=== PATIENT | male | born 1950 | race Hispanic/Latino ===

== ENCOUNTER 2021-04-28 12:49 | Inpatient (IN) | payer MEDICARE ==
[~2021-04-28] VITALS: Ht 167.6 cm; Wt 76.2 kg
[2021-04-28 13:40] LABS: BASOPHILS % 0.3 % (0.0-1.0); EOSINOPHILS # (AUTO) 0.2 (0.0-0.4); EOSINOPHILS % 3.1 % (0.0-6.0); HEMATOCRIT 38.2 % (38.2-49.6); HEMOGLOBIN 12.2 g/dL (14.0-18.0); LYMPHOCYTES % 17.9 % (18.0-39.1); MEAN CORPUSCULAR HGB CONC 31.9 g/dL (31-35); MEAN CORPUSCULAR VOLUME 90.7 fL (81-99); MONOCYTES # (AUTO) 0.4 (0.2-0.8); MONOCYTES % 6.8 % (4.4-11.3); NEUTROPHILS # (AUTO) 4.1 (2.1-6.9); NEUTROPHILS % 71.4 % (38.7-80.0); PLATELET COUNT 151 x10e3/uL (140-360); RED BLOOD COUNT 4.21 x10e6/uL (4.3-5.7); RED CELL DISTRIBUTION WIDTH 14.2 % (11.7-14.4)
[2021-04-28] MEDS: Vancomycin IV 1 GM in SODIUM CHLORIDE 0.9% 250ML 250 ML IV SCH (14:00)
[2021-04-28 14:05] LABS: ALBUMIN 4.1 g/dL (3.5-5.0); ALBUMIN/GLOBULIN RATIO 1.3 (0.8-2.0); ANION GAP 16.1 mmol/L (8-16); CALCIUM 9.3 mg/dL (8.4-10.2); CREATININE, SERUM 0.97 mg/dL (0.72-1.25); POTASSIUM 4.1 mmol/L (3.5-5.1)
[2021-04-28] MEDS ORDERED: GLIMEPIRIDE2 MG PO (17:14)
[2021-04-28] MEDS ORDERED: BACTRIM DS TAB1 EACH PO (17:14)
[2021-04-28] MEDS ORDERED: LEVOFLOXACIN250 MG PO (17:14)
[2021-04-28] MEDS ORDERED: METFORMIN HCL500 MG PO (17:14)
[2021-04-28] MEDS ORDERED: CRESTOR10 MG PO (17:14)
[2021-04-28] MEDS ORDERED: AMLODIPINE BESY10 MG PO (17:14)
[2021-04-28] MEDS ORDERED: PIOGLITAZONE HC45 MG PO (17:14)
[2021-04-28] MEDS ORDERED: ZESTRIL10 MG PO (17:14)
[2021-04-28] MEDS ORDERED: HYDRALAZINE HCL25 MG PO (17:14)
[2021-04-28] MEDS ORDERED: HYDROCHLOROTHIA50 MG PO (17:14)
[2021-04-28 17:16] VITALS: BP 132/69
[2021-04-28 17:17] VITALS: BP 132/69
[2021-04-28] MEDS ORDERED: INFLUENZA VIRUS VAC SPLIT INJ 0.5 ML SYR IM SCH (17:18)
[2021-04-28 17:26] VITALS: BP 132/69
[2021-04-28] MEDS ORDERED: Morphine 2mg Syringe 2 MG/ML SYR IV PRN (17:30)
[2021-04-28] MEDS ORDERED: ACETAMINOPHEN 325 MG TAB PO PRN (17:30)
[2021-04-28] MEDS ORDERED: FAMOTIDINE 20 MG/2 ML VIAL IV ONE (17:42)
[2021-04-28] MEDS ORDERED: ONDANSETRON HCL INJ 2MG/ML 2ML 2 MG/ML VIAL IV PRN (17:45)
[2021-04-28] MEDS ORDERED: DEXTROSE 50% SYRINGE 50 ML IV PRN (17:45)
[2021-04-28] MEDS ORDERED: Vancomycin IV 1 GM in SODIUM CHLORIDE 0.9% 250ML 250 ML IV SCH (18:00)
[2021-04-28] MEDS: SODIUM CHLORIDE 0.9% 1000ML 1,000 ML IV SCH (18:23)
[2021-04-28] MEDS: AMLODIPINE BESYLATE 10 MG TAB PO SCH (18:23)
[2021-04-28 19:54] VITALS: BP 120/63
[2021-04-28] MEDS: INSULIN LISPRO 100 UNIT/1 ML 3ML VIAL SQ SCH (20:52)
[2021-04-28 21:00] VITALS: BP 120/63
[2021-04-28] MEDS: PIPERACILLIN/TAZOBACTAM 3.375 GM in SODIUM CHLORIDE 0.9% 50ML 50 ML IV SCH (22:16)
[2021-04-29] VITALS (8 sets, daily range): BP systolic 102–146; BP diastolic 56–68
[2021-04-29] MEDS: Vancomycin IV 1 GM in SODIUM CHLORIDE 0.9% 250ML 250 ML IV SCH ×2 (02:08→14:04)
[2021-04-29 05:00] LABS: BASOPHILS % 0.5 % (0.0-1.0); EOSINOPHILS # (AUTO) 0.3 (0.0-0.4); HEMATOCRIT 33.7 % (38.2-49.6); HEMOGLOBIN 11.1 g/dL (14.0-18.0); LYMPHOCYTES % 22.8 % (18.0-39.1); MEAN CORPUSCULAR HEMOGLOBIN 29.3 pg (28-32); MEAN CORPUSCULAR HGB CONC 32.9 g/dL (31-35); MEAN CORPUSCULAR VOLUME 88.9 fL (81-99); MONOCYTES # (AUTO) 0.4 (0.2-0.8); MONOCYTES % 9.3 % (4.4-11.3); NEUTROPHILS # (AUTO) 2.6 (2.1-6.9); NEUTROPHILS % 59.9 % (38.7-80.0); PLATELET COUNT 135 x10e3/uL (140-360); RED BLOOD COUNT 3.79 x10e6/uL (4.3-5.7); RED CELL DISTRIBUTION WIDTH 14.2 % (11.7-14.4)
[2021-04-29 05:38] LABS: ERYTHROCYTE SEDIMENTATION RATE 24 mm/hr (0-13)
[2021-04-29] MEDS: PIPERACILLIN/TAZOBACTAM 3.375 GM in SODIUM CHLORIDE 0.9% 50ML 50 ML IV SCH ×3 (06:10→21:41)
[2021-04-29 06:40] LABS: ALBUMIN 3.4 g/dL (3.5-5.0); ALBUMIN/GLOBULIN RATIO 1.3 (0.8-2.0); CALCIUM 8.3 mg/dL (8.4-10.2); CHOL/HDL RATIO 2.6 (3.9-4.7); CREATININE, SERUM 0.74 mg/dL (0.72-1.25); MAGNESIUM 1.6 MG/DL (1.3-2.1)
[2021-04-29 07:00] LABS: THYROID STIMULATING HORMONE 0.84 uIU/mL (0.350-4.940)
[2021-04-29] MEDS: GLIMEPIRIDE 2 MG TAB PO SCH ×2 (07:30→16:38)
[2021-04-29] MEDS: INSULIN LISPRO 100 UNIT/1 ML 3ML VIAL SQ SCH ×4 (07:30→21:41)
[2021-04-29] MEDS: METFORMIN HCL 500 MG TAB PO SCH ×2 (07:51→16:39)
[2021-04-29] MEDS: SODIUM CHLORIDE 0.9% 1000ML 1,000 ML IV SCH ×2 (08:13→20:25)
[2021-04-29] MEDS: HYDRALAZINE HCL 25 MG TAB PO SCH ×2 (08:15→16:39)
[2021-04-29] MEDS ORDERED: Vancomycin IV 1 GM VIAL ONE (10:59)
[2021-04-29] MEDS ORDERED: BUPIVACAINE HCL 0.5% INJ 30 ML VIAL INJ ONE (12:21)
[2021-04-29] MEDS ORDERED: POVIDONE IODINE 0.05% 0.05 % ML PO ONE (12:35)
[2021-04-29] MEDS ORDERED: LIDOCAINE HCL 2% LOCAL INJ 5 ML SDV VIAL INJ ONE (12:35)
[2021-04-29] MEDS ORDERED: ONDANSETRON HCL INJ 2MG/ML 2ML 2 MG/ML VIAL ONE (12:35)
[2021-04-29] MEDS ORDERED: PROPOFOL IV EMULSION 10 MG/ML 20 ML VIAL ONE (12:35)
[2021-04-29] MEDS ORDERED: DEXAMETHASONE SOD PHOS INJ 4 MG/ML SDV ONE (12:35)
[2021-04-29] MEDS ORDERED: SEVOFLURANE INHAL SOLN 250 ML PEN BTL ONE (12:35)
[2021-04-29] MEDS ORDERED: KETOROLAC TROMETHAMINE 30 MG/ML VIAL ONE (12:35)
[2021-04-29] MEDS ORDERED: MIDAZOLAM HCL 2 MG/2 ML VIAL ONE (13:06)
[2021-04-29] MEDS ORDERED: FENTANYL CITRATE/PF 100MCG/2 ML INJ ONE (13:06)
[2021-04-29] MEDS: AMLODIPINE BESYLATE 10 MG TAB PO SCH (13:19)
[2021-04-29] MEDS: PIOGLITAZONE HCL 45 MG TAB PO SCH (13:20)
[2021-04-29] MEDS: LISINOPRIL 20 MG TAB PO SCH (13:20)
[2021-04-29] MEDS: SIMVASTATIN 20 MG TAB PO SCH (21:41)
[2021-04-30] VITALS (8 sets, daily range): BP systolic 95–111; BP diastolic 51–58
[2021-04-30] MEDS: SODIUM CHLORIDE 0.9% 1000ML 1,000 ML IV SCH ×2 (01:45→20:19)
[2021-04-30] MEDS: Vancomycin IV 1 GM in SODIUM CHLORIDE 0.9% 250ML 250 ML IV SCH ×2 (02:18→14:26)
[2021-04-30 04:59] LABS: BASOPHILS % 0.1 % (0.0-1.0); EOSINOPHILS % 0.1 % (0.0-6.0); HEMATOCRIT 32.8 % (38.2-49.6); HEMOGLOBIN 10.8 g/dL (14.0-18.0); LYMPHOCYTES % 13.2 % (18.0-39.1); MEAN CORPUSCULAR HEMOGLOBIN 29.5 pg (28-32); MEAN CORPUSCULAR HGB CONC 32.9 g/dL (31-35); MEAN CORPUSCULAR VOLUME 89.6 fL (81-99); MONOCYTES # (AUTO) 0.6 (0.2-0.8); MONOCYTES % 8.9 % (4.4-11.3); NEUTROPHILS # (AUTO) 5.5 (2.1-6.9); PLATELET COUNT 131 x10e3/uL (140-360); RED BLOOD COUNT 3.66 x10e6/uL (4.3-5.7); RED CELL DISTRIBUTION WIDTH 14.1 % (11.7-14.4)
[2021-04-30 05:22] LABS: ALBUMIN 3.2 g/dL (3.5-5.0); ALBUMIN/GLOBULIN RATIO 1.3 (0.8-2.0); ANION GAP 11.1 mmol/L (8-16); CREATININE, SERUM 0.83 mg/dL (0.72-1.25); POTASSIUM 4.1 mmol/L (3.5-5.1)
[2021-04-30] MEDS: PIPERACILLIN/TAZOBACTAM 3.375 GM in SODIUM CHLORIDE 0.9% 50ML 50 ML IV SCH ×3 (05:34→21:21)
[2021-04-30] MEDS: INSULIN LISPRO 100 UNIT/1 ML 3ML VIAL SQ SCH ×4 (07:30→21:00)
[2021-04-30] MEDS: GLIMEPIRIDE 2 MG TAB PO SCH ×2 (10:06→16:30)
[2021-04-30] MEDS: METFORMIN HCL 500 MG TAB PO SCH ×2 (10:06→16:31)
[2021-04-30] MEDS: PIOGLITAZONE HCL 45 MG TAB PO SCH (10:06)
[2021-04-30] MEDS: AMLODIPINE BESYLATE 10 MG TAB PO SCH (10:07)
[2021-04-30] MEDS: HYDRALAZINE HCL 25 MG TAB PO SCH ×2 (10:07→16:31)
[2021-04-30] MEDS: LISINOPRIL 20 MG TAB PO SCH (10:08)
[2021-04-30] MEDS ORDERED: ONDANSETRON HCL 4 MG ORAL DISINTEGRATING TAB PO PRN (14:15)
[2021-04-30] MEDS ORDERED: Vancomycin IV 1 GM VIAL ONE (15:18)
[2021-04-30] MEDS: SIMVASTATIN 20 MG TAB PO SCH (21:00)
[2021-05-01 00:47] VITALS: BP 103/54
[2021-05-01] MEDS: Vancomycin IV 1.25 GM in SODIUM CHLORIDE 0.9% 250ML 250 ML IV SCH ×2 (01:38→14:39)
[2021-05-01 05:27] VITALS: BP 118/72
[2021-05-01] MEDS: PIPERACILLIN/TAZOBACTAM 3.375 GM in SODIUM CHLORIDE 0.9% 50ML 50 ML IV SCH ×3 (05:39→21:07)
[2021-05-01 06:39] LABS: BASOPHILS % 0.5 % (0.0-1.0); EOSINOPHILS # (AUTO) 0.2 (0.0-0.4); EOSINOPHILS % 4.1 % (0.0-6.0); HEMATOCRIT 32.6 % (38.2-49.6); HEMOGLOBIN 10.4 g/dL (14.0-18.0); LYMPHOCYTES # (AUTO) 1.7 (1.0-3.2); MEAN CORPUSCULAR HEMOGLOBIN 29.3 pg (28-32); MEAN CORPUSCULAR HGB CONC 31.9 g/dL (31-35); MEAN CORPUSCULAR VOLUME 91.8 fL (81-99); MONOCYTES # (AUTO) 0.5 (0.2-0.8); MONOCYTES % 8.9 % (4.4-11.3); NEUTROPHILS # (AUTO) 3.3 (2.1-6.9); NEUTROPHILS % 55.8 % (38.7-80.0); PLATELET COUNT 127 x10e3/uL (140-360); RED BLOOD COUNT 3.55 x10e6/uL (4.3-5.7); RED CELL DISTRIBUTION WIDTH 14.4 % (11.7-14.4)
[2021-05-01 07:17] LABS: ANION GAP 12.1 mmol/L (8-16); CALCIUM 7.5 mg/dL (8.4-10.2); CREATININE, SERUM 0.72 mg/dL (0.72-1.25); MAGNESIUM 1.5 MG/DL (1.3-2.1); PHOSPHORUS 2.6 MG/DL (2.3-4.7); POTASSIUM 4.1 mmol/L (3.5-5.1)
[2021-05-01] MEDS: INSULIN LISPRO 100 UNIT/1 ML 3ML VIAL SQ SCH ×4 (07:30→21:00)
[2021-05-01] MEDS: GLIMEPIRIDE 2 MG TAB PO SCH ×2 (07:30→16:31)
[2021-05-01] MEDS ORDERED: MAGNESIUM SULFATE 2GM/50ML 50 ML IV ONE ×3 (07:45→14:00)
[2021-05-01 08:00] VITALS: BP 118/72
[2021-05-01] MEDS: METFORMIN HCL 500 MG TAB PO SCH ×2 (08:00→16:32)
[2021-05-01] MEDS: OYST-CAL-D 500MG TABLET PO SCH ×2 (09:00→16:32)
[2021-05-01] MEDS: ASCORBIC ACID 500 MG TAB PO SCH ×2 (09:00→16:32)
[2021-05-01] MEDS: LISINOPRIL 20 MG TAB PO SCH (09:00)
[2021-05-01] MEDS: AMLODIPINE BESYLATE 10 MG TAB PO SCH (09:00)
[2021-05-01] MEDS: ZINC SULFATE 220 MG CAP PO SCH ×2 (09:00→16:32)
[2021-05-01] MEDS: HYDRALAZINE HCL 25 MG TAB PO SCH ×2 (09:00→16:32)
[2021-05-01] MEDS: MAGNESIUM OXIDE 400 MG TAB PO SCH ×2 (09:00→16:32)
[2021-05-01] MEDS: PIOGLITAZONE HCL 45 MG TAB PO SCH (09:00)
[2021-05-01] MEDS: MULTIVITAMINS/MINERALS TAB PO SCH (09:00)
[2021-05-01] MEDS: SODIUM CHLORIDE 0.9% 1000ML 1,000 ML IV SCH (12:29)
[2021-05-01] MEDS ORDERED: MAGNESIUM SULF 1GRAM/DEXTROSE 0 ML IV ONE (13:33)
[2021-05-01 20:21] VITALS: BP 113/64
[2021-05-01 20:29] VITALS: BP 113/64
[2021-05-01] MEDS: SIMVASTATIN 20 MG TAB PO SCH (21:00)
[2021-05-02] VITALS (8 sets, daily range): BP systolic 114–135; BP diastolic 52–74
[2021-05-02] MEDS: Vancomycin IV 1.25 GM in SODIUM CHLORIDE 0.9% 250ML 250 ML IV SCH ×2 (02:00→14:54)
[2021-05-02] MEDS: SODIUM CHLORIDE 0.9% 1000ML 1,000 ML IV SCH ×3 (02:28→20:05)
[2021-05-02] MEDS: PIPERACILLIN/TAZOBACTAM 3.375 GM in SODIUM CHLORIDE 0.9% 50ML 50 ML IV SCH ×3 (05:31→21:06)
[2021-05-02] MEDS: INSULIN LISPRO 100 UNIT/1 ML 3ML VIAL SQ SCH ×4 (07:30→20:38)
[2021-05-02] MEDS: GLIMEPIRIDE 2 MG TAB PO SCH ×2 (07:30→16:31)
[2021-05-02] MEDS: METFORMIN HCL 500 MG TAB PO SCH ×2 (08:00→16:34)
[2021-05-02] MEDS: HYDRALAZINE HCL 25 MG TAB PO SCH ×2 (09:00→16:34)
[2021-05-02] MEDS: ZINC SULFATE 220 MG CAP PO SCH ×2 (09:00→16:34)
[2021-05-02] MEDS: PIOGLITAZONE HCL 45 MG TAB PO SCH (09:00)
[2021-05-02] MEDS: MULTIVITAMINS/MINERALS TAB PO SCH (09:00)
[2021-05-02] MEDS: MAGNESIUM OXIDE 400 MG TAB PO SCH ×2 (09:00→16:34)
[2021-05-02] MEDS: OYST-CAL-D 500MG TABLET PO SCH ×2 (09:00→16:34)
[2021-05-02] MEDS: ASCORBIC ACID 500 MG TAB PO SCH ×2 (09:00→16:34)
[2021-05-02] MEDS: AMLODIPINE BESYLATE 10 MG TAB PO SCH (09:00)
[2021-05-02] MEDS: LISINOPRIL 20 MG TAB PO SCH (09:00)
[2021-05-02] MEDS: SIMVASTATIN 20 MG TAB PO SCH (20:06)
[2021-05-03] VITALS (8 sets, daily range): BP systolic 115–144; BP diastolic 48–67
[2021-05-03] MEDS: Vancomycin IV 1.25 GM in SODIUM CHLORIDE 0.9% 250ML 250 ML IV SCH ×2 (02:00→14:00)
[2021-05-03 05:13] LABS: ANION GAP 11.9 mmol/L (8-16); CALCIUM 7.8 mg/dL (8.4-10.2); CREATININE, SERUM 0.73 mg/dL (0.72-1.25); MAGNESIUM 1.8 MG/DL (1.3-2.1); PHOSPHORUS 3.5 MG/DL (2.3-4.7); POTASSIUM 3.9 mmol/L (3.5-5.1)
[2021-05-03] MEDS: PIPERACILLIN/TAZOBACTAM 3.375 GM in SODIUM CHLORIDE 0.9% 50ML 50 ML IV SCH ×3 (05:18→21:52)
[2021-05-03 05:26] LABS: BASOPHILS % 0.4 % (0.0-1.0); EOSINOPHILS # (AUTO) 0.2 (0.0-0.4); HEMATOCRIT 33.2 % (38.2-49.6); HEMOGLOBIN 10.6 g/dL (14.0-18.0); LYMPHOCYTES # (AUTO) 1.2 (1.0-3.2); LYMPHOCYTES % 25.5 % (18.0-39.1); MEAN CORPUSCULAR HEMOGLOBIN 29.5 pg (28-32); MEAN CORPUSCULAR HGB CONC 31.9 g/dL (31-35); MEAN CORPUSCULAR VOLUME 92.5 fL (81-99); MONOCYTES # (AUTO) 0.4 (0.2-0.8); MONOCYTES % 8.5 % (4.4-11.3); NEUTROPHILS # (AUTO) 2.7 (2.1-6.9); NEUTROPHILS % 59.1 % (38.7-80.0); PLATELET COUNT 127 x10e3/uL (140-360); RED BLOOD COUNT 3.59 x10e6/uL (4.3-5.7); RED CELL DISTRIBUTION WIDTH 14.8 % (11.7-14.4)
[2021-05-03] MEDS: GLIMEPIRIDE 2 MG TAB PO SCH ×2 (07:30→16:30)
[2021-05-03] MEDS: INSULIN LISPRO 100 UNIT/1 ML 3ML VIAL SQ SCH ×4 (07:30→21:59)
[2021-05-03] MEDS: METFORMIN HCL 500 MG TAB PO SCH ×2 (08:00→17:00)
[2021-05-03] MEDS: AMLODIPINE BESYLATE 10 MG TAB PO SCH (09:00)
[2021-05-03] MEDS: HYDRALAZINE HCL 25 MG TAB PO SCH ×2 (09:00→17:00)
[2021-05-03] MEDS: LISINOPRIL 20 MG TAB PO SCH (09:00)
[2021-05-03] MEDS: OYST-CAL-D 500MG TABLET PO SCH ×2 (09:00→17:00)
[2021-05-03] MEDS: MULTIVITAMINS/MINERALS TAB PO SCH (09:00)
[2021-05-03] MEDS: ASCORBIC ACID 500 MG TAB PO SCH ×2 (09:00→17:00)
[2021-05-03] MEDS: PIOGLITAZONE HCL 45 MG TAB PO SCH (09:00)
[2021-05-03] MEDS: MAGNESIUM OXIDE 400 MG TAB PO SCH ×2 (09:00→17:00)
[2021-05-03] MEDS: ZINC SULFATE 220 MG CAP PO SCH ×2 (10:28→17:00)
[2021-05-03] MEDS: SIMVASTATIN 20 MG TAB PO SCH (21:52)
[2021-05-03] MEDS: SODIUM CHLORIDE 0.9% 1000ML 1,000 ML IV SCH (21:52)
[2021-05-04 00:43] VITALS: BP 116/59
[2021-05-04] MEDS: Vancomycin IV 1.25 GM in SODIUM CHLORIDE 0.9% 250ML 250 ML IV SCH (03:04)
[2021-05-04 05:05] VITALS: BP 111/67
[2021-05-04] MEDS: PIPERACILLIN/TAZOBACTAM 3.375 GM in SODIUM CHLORIDE 0.9% 50ML 50 ML IV SCH (05:17)
[2021-05-04 06:13] LABS: BASOPHILS % 0.4 % (0.0-1.0); EOSINOPHILS # (AUTO) 0.2 (0.0-0.4); EOSINOPHILS % 5.1 % (0.0-6.0); HEMATOCRIT 32.3 % (38.2-49.6); HEMOGLOBIN 10.4 g/dL (14.0-18.0); LYMPHOCYTES # (AUTO) 1.2 (1.0-3.2); LYMPHOCYTES % 26.7 % (18.0-39.1); MEAN CORPUSCULAR HEMOGLOBIN 29.6 pg (28-32); MEAN CORPUSCULAR HGB CONC 32.2 g/dL (31-35); MONOCYTES # (AUTO) 0.4 (0.2-0.8); MONOCYTES % 9.3 % (4.4-11.3); NEUTROPHILS # (AUTO) 2.6 (2.1-6.9); NEUTROPHILS % 56.7 % (38.7-80.0); PLATELET COUNT 133 x10e3/uL (140-360); RED BLOOD COUNT 3.51 x10e6/uL (4.3-5.7); RED CELL DISTRIBUTION WIDTH 14.9 % (11.7-14.4)
[2021-05-04 06:17] LABS: ANION GAP 12.7 mmol/L (8-16); CALCIUM 8.2 mg/dL (8.4-10.2); CREATININE, SERUM 0.66 mg/dL (0.72-1.25); POTASSIUM 3.7 mmol/L (3.5-5.1)
[2021-05-04] MEDS: INSULIN LISPRO 100 UNIT/1 ML 3ML VIAL SQ SCH ×2 (07:30→11:30)
[2021-05-04 09:00] VITALS: BP 111/67
[2021-05-04] MEDS: HYDRALAZINE HCL 25 MG TAB PO SCH (09:00)
[2021-05-04 09:29] VITALS: BP 124/55
[2021-05-04] MEDS: MULTIVITAMINS/MINERALS TAB PO SCH (09:57)
[2021-05-04] MEDS: MAGNESIUM OXIDE 400 MG TAB PO SCH (09:57)
[2021-05-04] MEDS: METFORMIN HCL 500 MG TAB PO SCH (09:57)
[2021-05-04] MEDS: GLIMEPIRIDE 2 MG TAB PO SCH (09:57)
[2021-05-04] MEDS: PIOGLITAZONE HCL 45 MG TAB PO SCH (09:57)
[2021-05-04] MEDS: AMLODIPINE BESYLATE 10 MG TAB PO SCH (09:58)
[2021-05-04] MEDS: LISINOPRIL 20 MG TAB PO SCH (09:58)
[2021-05-04] MEDS: ASCORBIC ACID 500 MG TAB PO SCH (09:58)
[2021-05-04] MEDS: ZINC SULFATE 220 MG CAP PO SCH (09:58)
[2021-05-04] MEDS: OYST-CAL-D 500MG TABLET PO SCH (09:58)
[2021-05-04 13:11] VITALS: BP 129/60
[2021-05-04 13:30] VITALS: BP 120/60
[2021-05-05] MEDS ORDERED: CEFTRIAXONE 2 GM in SODIUM CHLORIDE 0.9% 100 ML IV SCH (09:00)
== END 2021-05-04 16:01 | DRG 623 ==
LOC: ER 12:59 → ERHOLD 13:19 → IMCU 16:55 → MED/SURG2 04-29 18:06
PROVIDERS: ADMIT Internal Medicine; ATTEND Internal Medicine
PROC: 0J9Q0ZZ Drainage of Right Foot Subcutaneous Tissue and Fascia, Open Approach (ICD-10-PCS; 2021-04-29)
PROC: 3E0102A Introduction of Anti-Infective Envelope into Subcutaneous Tissue, Open Approach (ICD-10-PCS; 2021-04-29)
PROC: 0LBV0ZZ Excision of Right Foot Tendon, Open Approach (ICD-10-PCS; principal; 2021-04-29 12:00)
DX: E11.69 Type 2 diabetes mellitus with other specified complication (principal); M86.8X7 Other osteomyelitis, ankle and foot; L97.418 Non-pressure chronic ulcer of right heel and midfoot with other specified severity; B96.89 Other specified bacterial agents as the cause of diseases classified elsewhere; C61 Malignant neoplasm of prostate; I10 Essential (primary) hypertension; E11.621 Type 2 diabetes mellitus with foot ulcer; Z79.899 Other long term (current) drug therapy; E11.40 Type 2 diabetes mellitus with diabetic neuropathy, unspecified; E11.51 Type 2 diabetes mellitus with diabetic peripheral angiopathy without gangrene; S91.331A Puncture wound without foreign body, right foot, initial encounter; Z74.09 Other reduced mobility; E83.42 Hypomagnesemia; E11.65 Type 2 diabetes mellitus with hyperglycemia
CPT/HCPCS: 36415; 36569; 71045; 80048; 80053; 80061; 80202; 82948; 83036; 83735; 84100; 84443; 85025; 85651; 86141; 87040; 87071; 87075; 87205; 93925; 99251; 99283; C1713; J1100; J1885; J2001; J2250; J2405; J2543; J3010; J3370; J3475; J7030; J7050; U0002